=== PATIENT | female | born 1980 | race African-American/Black ===

== ENCOUNTER 2016-09-04 17:07 | Emergency (ER) | payer MEDICAID ==
[~2016-09-04] VITALS: Ht 165.1 cm; Wt 59.0 kg
[~2016-09-04 17:07] MED LIST: ALBU.5I NEB; CEPH-460 PO; FERR325T PO; FLUC150T PO
[2016-09-04 17:10] VITALS: BP 148/80; PULSE 82; RESP 20; TEMP 98.2; O2SAT 97
--- NOTE | 2016-09-04 17:37 | PD ---
HPI Chief Complaint: Cold / Flu Symptoms Time Seen by Provider: 17:34 Travel History International Travel<30 days: No Contact w/Intl Traveler<30days: No Traveled to known affect area: No History of Present Illness HPI Patient comes in complaining of cold-like symptoms that began yesterday. Patient states she took NyQuil last night. Patient denies doing anything else for this. Patient states that her child is at home with a cold, but she feels that she has the flu. Patient complaining of generalized body aches, headache, congestion, sore throat, and cough. Patient denies any known fevers but has had chills. Denies any nausea, vomiting, diarrhea, abdominal pain, chest pain, or shortness of breath. Patient denies anything making it better or worse. Patient reports she had similar last year when it got cold out that improved after using an inhaler that she no longer has. PFSH Past Medical History Hx Anticoagulant Therapy: No Asthma: Yes Cancer: No Cardiovascular Problems: No Chemotherapy: No Cerebrovascular Accident: No Diabetes: No Diminished Hearing: No Endocrine: No Glaucoma: No Genitourinary: No Hepatitis: No Hiatal Hernia: No Hypertension: No Immune Disorder: No Musculoskeletal: No Neurologic: No Psychiatric: No Reproductive: No Respiratory: No Migraines: Yes Thyroid Disease: No Influenza Vaccination: No ?: Not : 4 Para: 2 Miscarriage: 1 : 1 Ovarian Cysts: Yes Dilation and Curettage (D&C): Yes Tubal Ligation: Yes Past Surgical History AICD: No Eye Surgery: Yes (BILATERAL EYE SX A CHILD PER PT) Gynecologic Surgery: Yes (d and c) Hysterectomy: No Joint Replacement: No Oral Surgery: Yes (WISDOM TEETH) Pacemaker: No Other Surgery: Yes (CYSTS PRESENT ) Social History Alcohol Use: No Tobacco Use: No Substance Use: No Allergies-Medications (Allergen,Severity, Reaction): Coded Allergies: Penicillin (Verified Allergy, Intermediate, Hives, 09/04/16) Reported Meds & Prescriptions Reported Meds & Active Scripts Active Ventolin Hfa 18 GM Inh (Albuterol Sulfate) 90 Mcg/Act Aer 2 Puff INH Q4H PRN Review of Systems Except as stated in HPI: all other systems reviewed are Neg Physical Exam Narrative GENERAL: Well-developed, well nourished, in no acute distress, and non-ill appearing. SKIN: Warm and dry. HEAD: Atraumatic. Normocephalic. EYES: Pupils equal and round. EOMI. No scleral icterus. No injection or drainage. ENT: No nasal bleeding or discharge. Mucous membranes pink and moist. Tympanic membranes pearly donahue bilaterally. Posterior pharynx Nonerythematous without exudate. Uvula is midline. NECK: Trachea midline. No cervical lymphadenopathy. Supple. No nuclear rigidity. CARDIOVASCULAR: Regular rate and rhythm. No murmur appreciated. RESPIRATORY: No accessory muscle use. No respiratory distress. Clear to auscultation. Breath sounds equal bilaterally. Dry hacking cough noted on exam. GASTROINTESTINAL: Abdomen soft, non-tender, nondistended. Hepatic and splenic margins not palpable. Normal bowel sounds 4. No pulsatile mass. MUSCULOSKELETAL: No obvious deformities. No clubbing. No cyanosis. No edema. Full range of motion. NEUROLOGICAL: Awake and alert. No obvious cranial nerve deficits. Motor grossly within normal limits. Normal speech. PSYCHIATRIC: Appropriate mood and affect; insight and judgment normal. Data Data Last Documented VS Vital Signs Date Time Temp Pulse Resp B/P Pulse Ox O2 Delivery O2 Flow Rate FiO2 09/04/16 17:26 Room Air 09/04/16 17:10 98.2 82 20 148/80 97 Orders Group A Rapid Strep Screen (09/04/16 17:34) Influenzae A/B Antigen (09/04/16 17:34) Strep Culture (Group A) (09/04/16 17:40) MDM Medical Decision Making Medical Screen Exam Complete: Yes Emergency Medical Condition: Yes Differential Diagnosis Influenza, viral syndrome, strep pharyngitis, upper respiratory infection, other Narrative Course Patients symptom complex of cough and congestion is consistent with viral URI. The patient is non-ill appearing and is in no respiratory distress and comfortable. The patient moves air well and oxygen saturations are normal. There is no clinical evidence to suggest pneumonia at this time. Plan of care and management were discussed with the patient who agreed with plan. The patient was instructed to follow up with their physician and instructed to return if worsens, progressively worsening shortness of breath or difficulty breathing, persistent fever, chest pains or discomfort, inability to keep medication or fluids down with or without vomiting, or as needed. Patient in no obvious distress upon re-evaluation. All pertinent laboratory result(s) discussed with patient. Patient was asked if they wanted to speak to my attending, which the patient did not wish to do at this time. Any questions/ concerns in reference to patient diagnosis/condition discussed and clarified prior to patient's discharge. Reinforced sheer importance of close follow up with patient's primary physician or primary care clinic. Instructed patient to return to ED immediately, if symptoms return/worsen. Pt showed understanding of above instructions. Further instructions and recommendations were detailed in discharge paperwork. Pt ambulated without difficulty out of ED at discharge. Diagnosis Primary Impression: Upper respiratory infection Qualified Code: J06.9 - Upper respiratory tract infection, unspecified type Patient Instructions: General Instructions, Upper Respiratory Infection (ED) Additional Instructions: Follow-up with your primary care physician this week for reevaluation. Take all medication as prescribed. Use [id number] cold and flu medication for symptomatic relief. Follow instructions on the packaging. Drink plenty of non- caffeinated and nonalcoholic fluids. Return to the emergency department if symptoms get worse. Med/Other Pt SpecificInfo: Prescription(s) given Scripts Albuterol 18 GM Inh (Ventolin Hfa 18 GM Inh)90 Mcg/Act Aer2 Puff INH Q4H PRN ( COUGH) #1 INHALER Ref 0 Prov:Blanca Chavez MD 09/04/16 Disposition: 01 DISCHARGE HOME Condition: Stable Yoni Palmer Sep 04, 2016 17:37
[2016-09-04] MEDS ORDERED: VENTAER INH (18:26)
[2016-09-08] MEDS ORDERED: ZITHTAB PO (11:42)
[2016-09-08] MEDS ORDERED: [UNRECOGNIZED DRUG - OTHER] OROPHARYNG (11:42)
[2016-09-08] MEDS ORDERED: ALBUAER3 INH (11:42)
[2016-10-25] MEDS ORDERED: METR0.7528 VAGINAL (09:08)
[2016-11-15] MEDS ORDERED: METR500T10 PO (14:18)
[2016-11-15] MEDS ORDERED: CEPH500C PO (14:18)
[2016-11-15] MEDS ORDERED: MIREIUD I-UTERINE (14:22)
== END 2016-09-04 18:52 | disposition home or self-care (01) ==
LOC: NEPB 17:07
DX: J06.9 Acute upper respiratory infection, unspecified (principal)
CPT/HCPCS: 87081; 87804; 87880; 99283

== ENCOUNTER 2017-01-01 18:04 | Emergency (ER) | payer MEDICAID ==
[~2017-01-01] VITALS: Ht 165.1 cm; Wt 60.0 kg
[~2017-01-01 18:04] MED LIST changes: -ALBU.5I NEB; +ALBUAER3 INH; -CEPH-460 PO; +CEPH500C PO; -FERR325T PO; -FLUC150T PO; +METR500T10 PO; +MIREIUD I-UTERINE; +VENTAER INH; +[UNRECOGNIZED DRUG - OTHER] OROPHARYNG
[2017-01-01 18:05] VITALS: BP 128/74; PULSE 102; RESP 20; TEMP 101; O2SAT 98
[2017-01-01] MEDS ORDERED: ONDANSETRON HCL 4 MG/2 ML VIAL IV PUSH ONE (19:30)
[2017-01-01] MEDS ORDERED: IBUPROFEN 800 MG TAB PO ONE (19:30)
[2017-01-01] MEDS ORDERED: SODIUM CHLORIDE 0.9% FLUSH 10 ML FLUSH IVF PRN (19:30)
[2017-01-01] MEDS ORDERED: SODIUM CHLOR 0.9% 1000 ML INJ 1,000 ML IV ONE (19:30)
--- NOTE | 2017-01-01 19:55 | PD ---
HPI Chief Complaint: Cold / Flu Symptoms Time Seen by Provider: 19:46 Travel History International Travel<30 days: No Contact w/Intl Traveler<30days: No Traveled to known affect area: No History of Present Illness HPI Patient is a 36-year-old female presenting to emergency evaluation of bodyaches , headache, nausea, cough or chest congestion. Patient states her symptoms started yesterday, she reports vomiting 2-3 times today. Patient states that her children have been sick with the flu. She denies abdominal pain, chest pain , diarrhea. PFSH Past Medical History Hx Anticoagulant Therapy: No Asthma: Yes Cancer: No Cardiovascular Problems: No Chemotherapy: No Cerebrovascular Accident: No Diabetes: No Diminished Hearing: No Endocrine: No Glaucoma: No Genitourinary: No Hepatitis: No Hiatal Hernia: No Hypertension: No Immune Disorder: No Musculoskeletal: No Neurologic: No Psychiatric: No Reproductive: No Migraines: Yes Thyroid Disease: No ?: Not LMP: IUD : 4 Para: 2 Miscarriage: 1 : 1 Ovarian Cysts: Yes Dilation and Curettage (D&C): Yes Tubal Ligation: Yes Past Surgical History AICD: No Eye Surgery: Yes (BILATERAL EYE SX A CHILD PER PT) Gynecologic Surgery: Yes (tubal ligation, IUD) Hysterectomy: No Joint Replacement: No Oral Surgery: Yes (WISDOM TEETH) Pacemaker: No Social History Alcohol Use: No Tobacco Use: No Substance Use: No Allergies-Medications (Allergen,Severity, Reaction): Coded Allergies: Penicillin (Verified Allergy, Intermediate, Hives, 11/15/16) Reported Meds & Prescriptions Reported Meds & Active Scripts Active Ventolin Hfa 18 GM Inh (Albuterol Sulfate) 90 Mcg/Act Aer 2 Puff INH Q4H PRN Reported Mirena (Levonorgestrel (Iud)) 20 Mcg/24 Hr Iud 52 Mg I-UTERINE ONCE inserted by Dr Salvador 2014 [chlornexidine] OROPHARYNG NEEDED FOR THROAT Proair Hfa 8.5 GM Inh (Albuterol Sulfate) 90 Mcg/Act Aer 2 Puff INH Q4-6H PRN 108 mcg/actuation Review of Systems Except as stated in HPI: all other systems reviewed are Neg General / Constitutional: Positive: Fever, Chills HENT: Positive: Headaches, Congestion Cardiovascular: No: Chest Pain or Discomfort Respiratory: Positive: Cough, Pleuritic Pain Gastrointestinal: Positive: Nausea, Vomiting, No: Diarrhea, Abdominal Pain Genitourinary: No: Dysuria Musculoskeletal: Positive: Myalgias Physical Exam Narrative GENERAL: Well-developed, well-nourished, alert female. SKIN: Warm and dry. HEAD: Atraumatic. Normocephalic. EYES: Pupils equal and round. No scleral icterus. No injection or drainage. ENT: No nasal bleeding or discharge. Mucous membranes pink and moist. NECK: Trachea midline. No JVD. CARDIOVASCULAR: Regular rate and rhythm. RESPIRATORY: No accessory muscle use. Clear to auscultation. Breath sounds equal bilaterally. GASTROINTESTINAL: Abdomen soft, non-tender, nondistended. Hepatic and splenic margins not palpable. MUSCULOSKELETAL: Extremities without clubbing, cyanosis, or edema. No obvious deformities. NEUROLOGICAL: Awake and alert. No obvious cranial nerve deficits. Motor grossly within normal limits. Five out of 5 muscle strength in the arms and legs. Normal speech. PSYCHIATRIC: Appropriate mood and affect; insight and judgment normal. Data Data Last Documented VS Vital Signs Date Time Temp Pulse Resp B/P Pulse Ox O2 Delivery O2 Flow Rate FiO2 01/01/17 20:49 98.4 01/01/17 18:05 102 20 128/74 98 Room Air Orders Complete Blood Count With Diff (01/01/17 19:26) Basic Metabolic Panel (Bmp) (01/01/17 19:26) Influenzae A/B Antigen (01/01/17 19:26) Iv Access Insert/Monitor (01/01/17 19:26) Oximetry (01/01/17 19:26) Ibuprofen (Motrin) (01/01/17 19:30) Sodium Chloride 0.9% Flush (Ns Flush) (01/01/17 19:30) Sodium Chlor 0.9% 1000 Ml Inj (Ns 1000 M (01/01/17 19:30) Ondansetron Inj (Zofran Inj) (01/01/17 19:30) Labs Laboratory Tests Test 01/01/17 20:08 White Blood Count 7.1 TH/MM3 Red Blood Count 5.18 MIL/MM3 Hemoglobin 13.7 GM/DL Hematocrit 41.3 % Mean Corpuscular Volume 79.6 FL Mean Corpuscular Hemoglobin 26.4 PG Mean Corpuscular Hemoglobin 33.2 % Concent Red Cell Distribution Width 12.9 % Platelet Count 188 TH/MM3 Mean Platelet Volume 9.4 FL Neutrophils (%) (Auto) 79.8 % Lymphocytes (%) (Auto) 7.2 % Monocytes (%) (Auto) 9.2 % Eosinophils (%) (Auto) 3.3 % Basophils (%) (Auto) 0.5 % Neutrophils # (Auto) 5.7 TH/MM3 Lymphocytes # (Auto) 0.5 TH/MM3 Monocytes # (Auto) 0.7 TH/MM3 Eosinophils # (Auto) 0.2 TH/MM3 Basophils # (Auto) 0.0 TH/MM3 CBC Comment DIFF FINAL Differential Comment MDM Medical Decision Making Medical Screen Exam Complete: Yes Emergency Medical Condition: Yes Interpretation(s) Vital Signs Date Time Temp Pulse Resp B/P Pulse Ox O2 Delivery O2 Flow Rate FiO2 01/01/17 18:05 101.0 102 20 128/74 98 Room Air Differential Diagnosis Bronchitis versus pneumonia versus influenza versus other Narrative Course Patient is a 36-year-old female presented to the emergency department for evaluation of one day of body aches, headache, nausea and fevers and cough. Patient's children have the same illness and illness resolved on its own. Patient was mildly tachycardic with heart rate of 102 and a temp of 101 on arrival. Patient is given 800 mg of ibuprofen, temp was reassessed at 98.4. Patient was given IV fluids, heart rate is currently in the 80s. Influenza is negative, CBC is unremarkable, chemistry is unremarkable. Patient will be given prescriptions for ibuprofen and Phenergan. She was encouraged to maintain adequate hydration and continue symptomatic management. She was encouraged to obtain a thermometer to her temperature. Patient was encouraged to return to emergency department for any new or worsening symptoms. Patient verbalized understanding of instructions. Patient stable for discharge. Diagnosis Primary Impression: Viral syndrome Referrals: [facility] Primary Care Physician Patient Instructions: General Instructions, Viral Syndrome (ED) Additional Instructions: Maintain adequate fluid intake Continue symptom management Take medications as needed and as directed Return to emergency department for any new or worsening symptoms Med/Other Pt SpecificInfo: Prescription(s) given Scripts Promethazine (Phenergan)25 Mg Tab25 Mg PO Q6H PRN (Nausea/Vomiting) 3 Days Ref 0 Prov:Shazia Mckeon 01/01/17 Ibuprofen 800 Mg [id number] Mg PO Q8H PRN (Pain/Inflammation) 10 Days Ref 0 Prov:Shazia Mckeon 01/01/17 Disposition: 01 DISCHARGE HOME Condition: Stable Shazia Mckeon January 01, 2017 19:55
[2017-01-01 20:31] LABS: AUTOMATED NEUTROPHIL # 5.7 TH/MM3 (1.8-7.7); BASOPHIL % 0.5 % (0.0-2.0); EOSINOPHIL # 0.2 TH/MM3 (0-0.4); EOSINOPHIL % 3.3 % (0.0-4.0); HEMATOCRIT 41.3 % (35.0-46.0); HEMO FLAGS DIFF FINAL; LYMPH % 7.2 % (9.0-44.0); LYMPHOCYTE # 0.5 TH/MM3 (1.0-4.8); MEAN CELL VOLUME 79.6 FL (80.0-100.0); MEAN CORPUSCULAR HEMOGLOBIN 26.4 PG (27.0-34.0); MEAN CORPUSCULAR HGB CONC 33.2 % (32.0-36.0); MONO % 9.2 % (0.0-8.0); NEUT % 79.8 % (16.0-70.0); PLATELET COUNT 188 TH/MM3 (150-450); RED BLOOD COUNT 5.18 MIL/MM3 (4.00-5.30); RED CELL DISTRIBUTION WIDTH 12.9 % (11.6-17.2); WHITE BLOOD COUNT 7.1 TH/MM3 (4.0-11.0)
[2017-01-01 20:49] VITALS: TEMP 98.4
[2017-01-01 20:53] LABS: BICARBONATE 26.8 MEQ/L (21.0-32.0); POTASSIUM 3.6 MEQ/L (3.5-5.1)
[2017-01-01] MEDS ORDERED: IBUP800T23 PO (20:54)
[2017-01-01] MEDS ORDERED: PROM25TA5 PO (20:54)
[2017-01-01 21:10] VITALS: BP 124/72; PULSE 90; RESP 18; O2SAT 97
== END 2017-01-01 21:15 | disposition home or self-care (01) ==
LOC: NEPD 18:04
DX: B34.9 Viral infection, unspecified (principal)
CPT/HCPCS: 80048; 85025; 87804; 96361; 96374; 99284; J2405; J7030

== ENCOUNTER → 2017-07-12 | Day surgery (SDC) | payer MEDICAID ==
--- NOTE | 2017-07-10 13:19 | MH ---
cc: NICHO CERVANTES MD DATE OF ADMISSION: 07/12/2017 REASON FOR ADMISSION Loop electrical excision procedure. HISTORY OF PRESENT ILLNESS The patient is well-known to our practice and was recently seen in the office for evaluation of a high-grade squamous intraepithelial lesion. Colposcopic directed biopsies were taken which confirmed the existence of dysplastic lesion. We discussed different modes of therapy. She will proceed to having a loop electrical excision procedure. The risks of the procedure were discussed at length. ALLERGIES The patient describes allergies to PENICILLIN. FAMILY HISTORY Significant that her mother and father have a history of hypertension. PAST MEDICAL HISTORY Significant for - 1. History of anemia. 2. Ovarian cyst. 3. Dysmenorrhea. 4. Tonsillitis. PAST SURGICAL HISTORY The patient describes herself at with one miscarriage. AGE AT MENSTRUATION 17. ANIMAL RESCUER HISTORY The patient describes a long history of abnormal Pap smears starting in 2012 and then in 2013 colposcopic biopsy revealed SYLWIA-1. However, recently Pap smear was returned as high-grade squamous intraepithelial lesion. PAST SURGICAL HISTORY Surgical history is significant for - 1. Tubal ligation in 2014. 2. D&C in 2008. REVIEW OF SYSTEMS Essentially noncontributory. PHYSICAL EXAMINATION GENERAL: The patient is seen as well-developed, well-nourished, in no acute distress. VITAL SIGNS: Blood pressure was 110/80, pulse 70, respirations are 12. HEENT: Negative. CHEST: Clear to auscultation. CARDIOVASCULAR: Regular rate. ABDOMEN: Soft. Bowel sounds are positive. PELVIC EXAMINATION: External genitalia within normal limits. Uterus is normal in size. There is no adnexal mass palpable. EXTREMITIES: No cyanosis, clubbing or edema. NEUROPSYCHIATRIC: The patient is oriented x3 and showed no gross neurocranial deficit. REASON FOR ADMISSION High-grade squamous intraepithelial lesion of the cervix. PLAN The plan was for a loop electrical excision procedure. Nicho Cervantes MD JSG/SSB /11:48 AM /1:14 PM
[~2017-07-12] VITALS: Ht 165.1 cm; Wt 61.2 kg
[~2017-07-12] MED LIST changes: +*MEPERIDINE 25 MG INJ VIAL PERIprocedural Use ONLY ONE; +*diphenhydrAMINE HCL 50 MG/ML VIAL PERIprocedural Use ONLY ONE; +*morphine SULFATE 8 MG/ML PERIprocedure ONLY ONE; +ACETAMINOPHEN 1000 MG/100 ML 100 ML IV ONE; -ALBUAER3 INH; -CEPH500C PO; +CHLORHEXIDINE GLUCONATE 2 % 1 PACK (2 CLOTHS) TOPICAL PRN; +DEXAMETHASONE SOD PHOS 4 MG/ML VIAL IV ONE; +DEXAMETHASONE SOD PHOS 4 MG/ML VIAL ONE; +INSULIN HUMAN REGULAR 1,000 UNITS/10 ML VIAL SQ PRN; +LIDOCAINE HCL 1% PF 5 ML AMPULE OTHER ONE; +METOPROLOL TARTRATE 25 MG TAB PO PRN; -METR500T10 PO; +MIDAZOLAM HCL 2 MG/2 ML VIAL IV ONE; +ONDANSETRON HCL 4 MG/2 ML VIAL IV PUSH ONE; +POVIDONE IODINE 5% (ANTISEPSIS KIT) 4 APPLICATIONS EACH NARE PRN; +PROPOFOL 200 MG/20 ML AMP IV ONE; +SODIUM CHLORID 0.9% 500 ML IV PRN; -VENTAER INH; -[UNRECOGNIZED DRUG - OTHER] OROPHARYNG; +ceFAZolin 2 GM PREMIX 50 ML IV SCH; +ceFAZolin INJ 1,000 MG VIAL IV ONE; +hydrOXYzine PAMOATE 25 MG CAP PO ONE
[2017-07-12] MEDS: LACTATED RINGER'S 1000 ML IV PRN ×2 (06:42→08:20)
--- NOTE | 2017-07-12 09:07 | MP ---
cc: NICHO CERVANTES MD DATE OF SURGERY: 07/11/2017 PREOPERATIVE DIAGNOSIS High-grade squamous intraepithelial lesion of the cervix. POSTOPERATIVE DIAGNOSIS High-grade squamous intraepithelial lesion of the cervix. OPERATION Loop electrical excision procedure and removal of IUD. SURGEON Billy. ANESTHESIA General. ESTIMATED BLOOD LOSS Minimal. COMPLICATIONS None. 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 PROCEDURE The patient was prepped and draped in dorsal lithotomy position. A weighted speculum was placed in the posterior vaginal vault. The anterior lip of the cervix was grasped with a single-tooth tenaculum. The IUD was removed using sponge forceps and then a large size wire loop was used to excise the transformation zone. A smaller size wire loop was used to excise a small portion of the endocervical canal. Good hemostasis was noted. A ball electrode was used for further hemostasis. The tenaculum and speculum were removed. The patient was returned to the recovery room in stable condition. Nicho Cervantes MD JSG/BT /8:11 AM /9:03 AM
[2017-07-12 11:00] VITALS: BP 116/70; PULSE 72; RESP 16; TEMP 98.8; O2SAT 98
== END | disposition home or self-care (01) ==
LOC: HSDC 05:36
PROVIDERS: ATTEND Obstetrics & Gynecology
DX: N87.1 Moderate cervical dysplasia (principal); Z30.432 Encounter for removal of intrauterine contraceptive device; Z98.51 Tubal ligation status
CPT/HCPCS: 00940; 57522; 58301; 88300; 88305; 88307; J0690; J1200; J2175; J2250; J2270; J2405; J3010; J7120; Q0177; J0131; J1100

== ENCOUNTER 2017-09-23 16:44 | Emergency (ER) | payer MEDICAID ==
[~2017-09-23] VITALS: Ht 165.1 cm; Wt 60.0 kg
[~2017-09-23 16:44] MED LIST changes: -*MEPERIDINE 25 MG INJ VIAL PERIprocedural Use ONLY ONE; -*diphenhydrAMINE HCL 50 MG/ML VIAL PERIprocedural Use ONLY ONE; -*morphine SULFATE 8 MG/ML PERIprocedure ONLY ONE; +ACET-898; -ACETAMINOPHEN 1000 MG/100 ML 100 ML IV ONE; -CHLORHEXIDINE GLUCONATE 2 % 1 PACK (2 CLOTHS) TOPICAL PRN; -DEXAMETHASONE SOD PHOS 4 MG/ML VIAL IV ONE; -DEXAMETHASONE SOD PHOS 4 MG/ML VIAL ONE; -INSULIN HUMAN REGULAR 1,000 UNITS/10 ML VIAL SQ PRN; -LIDOCAINE HCL 1% PF 5 ML AMPULE OTHER ONE; +MEDR150I IM; -METOPROLOL TARTRATE 25 MG TAB PO PRN; -MIDAZOLAM HCL 2 MG/2 ML VIAL IV ONE; -MIREIUD I-UTERINE; -ONDANSETRON HCL 4 MG/2 ML VIAL IV PUSH ONE; -POVIDONE IODINE 5% (ANTISEPSIS KIT) 4 APPLICATIONS EACH NARE PRN; -PROPOFOL 200 MG/20 ML AMP IV ONE; -SODIUM CHLORID 0.9% 500 ML IV PRN; -ceFAZolin 2 GM PREMIX 50 ML IV SCH; -ceFAZolin INJ 1,000 MG VIAL IV ONE; -hydrOXYzine PAMOATE 25 MG CAP PO ONE
[2017-09-23 16:48] VITALS: BP 128/92; PULSE 94; RESP 16; TEMP 98.1; O2SAT 98
[2017-09-23] MEDS ORDERED: NAPROXEN 500 MG TAB PO ONE (18:15)
[2017-09-23] MEDS ORDERED: SULFAMETHOXAZOLE-TRIMETHOPRIM DS 800-160 MG TAB PO ONE (18:15)
[2017-09-23] MEDS ORDERED: CEPHALEXIN MONOHYDRATE 500 MG CAP PO ONE (18:15)
[2017-09-23] MEDS ORDERED: NAPR500 PO (18:16)
[2017-09-23] MEDS ORDERED: BACT800T5 PO (18:16)
[2017-09-23] MEDS ORDERED: CEPH-460 PO (18:16)
--- NOTE | 2017-09-23 18:16 | PD ---
HPI Chief Complaint: Skin Problem Time Seen by Provider: 18:04 Travel History International Travel<30 days: No Contact w/Intl Traveler<30days: No Traveled to known affect area: No History of Present Illness HPI 37-year-old female here for evaluation of left buttock boil. Patient reports that she first noticed the area of firmness and pain 2 days ago. She states it has been increasing in size. Pain is moderate to severe, constant, worse with palpation and sitting. She is unsure if there has been any drainage. No fevers or chills. No history of IVDU. PFSH Past Medical History Hx Anticoagulant Therapy: No Asthma: Yes Cancer: No Cardiovascular Problems: No Chemotherapy: No Cerebrovascular Accident: No Diabetes: No Diminished Hearing: No Endocrine: No Glaucoma: No Genitourinary: No Hepatitis: No Hiatal Hernia: No Hypertension: No Immune Disorder: No Musculoskeletal: No Neurologic: No Psychiatric: No Reproductive: Yes (ABNORMAL CELLS) Respiratory: Yes (ASTHMA) Migraines: Yes Thyroid Disease: No ?: Not : 4 Para: 2 Miscarriage: 1 : 1 Ovarian Cysts: Yes Dilation and Curettage (D&C): Yes Tubal Ligation: Yes Past Surgical History AICD: No Body Medical Devices: IUD Eye Surgery: Yes (BILATERAL EYE SX A CHILD PER PT) Gynecologic Surgery: Yes (tubal ligation, IUD) Hysterectomy: No Joint Replacement: No Oral Surgery: Yes (WISDOM TEETH) Pacemaker: No Social History Alcohol Use: No Tobacco Use: No Substance Use: No Allergies-Medications (Allergen,Severity, Reaction): Coded Allergies: penicillin G (Unverified Allergy, Intermediate, Hives, 09/23/17) Reported Meds & Prescriptions Reported Meds & Active Scripts Active Medroxyprogesterone Inj 150 Mg/Ml Inj 150 Mg IM Q90D Reported Acetaminophen Extra Strength (Acetaminophen) 500 Mg Tablet Review of Systems Except as stated in HPI: all other systems reviewed are Neg Physical Exam Narrative GENERAL: Well-developed, well-nourished, comfortable, no apparent distress. SKIN: Focused skin assessment warm/dry. Left superior buttock with area of erythema and induration with a central pustule, no spontaneous drainage. There is no fluctuance. This area was evaluated using a bedside ultrasound linear probe and shows cobblestoning, no drainable fluid collection. HEAD: Atraumatic. Normocephalic. CARDIOVASCULAR: Regular rate and rhythm. No murmur appreciated. RESPIRATORY: No accessory muscle use. Clear to auscultation. Breath sounds equal bilaterally. GASTROINTESTINAL: Abdomen soft, non-tender, nondistended. MUSCULOSKELETAL: No obvious deformities. No clubbing. No cyanosis. No edema. NEUROLOGICAL: Awake and alert. No obvious cranial nerve deficits. Motor grossly within normal limits. Normal speech. PSYCHIATRIC: Appropriate mood and affect; insight and judgment normal. Data Data Last Documented VS Vital Signs Date Time Temp Pulse Resp B/P (MAP) Pulse Ox O2 Delivery O2 Flow Rate FiO2 09/23/17 16:48 98.1 94 16 128/92 (104) 98 Orders Orders Sulfamet-Trimeth Ds 800-160 Mg (Bactrim (09/23/17 18:15) Cephalexin (Keflex) (09/23/17 18:15) Naproxen (Naprosyn) (09/23/17 18:15) MDM Medical Decision Making Medical Screen Exam Complete: Yes Emergency Medical Condition: Yes Differential Diagnosis Left buttock cellulitis, left buttock abscess Narrative Course Patient has an area on her left buttocks of induration, warmth, and evidence of possible drainage. There is no active drainage. There is no fluctuance. This area was evaluated using a linear ultrasound probe and shows cobblestoning which is consistent with cellulitis. There is no drainable fluid collection. Plan is to start the patient on oral antibiotics and she was advised to perform warm soaks/sitz baths. Patient advised to return to the emergency Department in 2 days for reevaluation. She was advised on when to return to the emergency Department sooner. She verbalizes understanding and agreement with plan. Procedures Procedure Narrative Bedside ultrasound: Using the linear ultrasound probe, a bedside ultrasound was performed to evaluate the area of induration on the patient's left superior buttock. This showed cobblestoning which is consistent with cellulitis. There is no drainable fluid collection. Diagnosis Primary Impression: Cellulitis of buttock, left Referrals: Primary Care Physician 2 days Additional Instructions: Return to the emergency Department in 2 days for reevaluation. Return to the emergency Department sooner for worsening symptoms or any other concerns. Take antibiotics as prescribed. Perform warm soaks/sitz baths as discussed. Do not squeeze this area. Scripts Naproxen (Naprosyn) 500 Mg Tab 500 MG PO BID for 10 Days, #20 TAB 0 Refills Prov: Gilson Liu MD 09/23/17 Cephalexin (Keflex) 500 Mg Cap 500 MG PO Q8H for Infection for 10 Days, #30 CAP 0 Refills Prov: Gilson Liu MD 09/23/17 Sulfamethoxazole-Trimethoprim (Bactrim DS) 800-160 Mg Tab 1 TAB PO BID for Infection, #20 TAB 0 Refills Prov: Gilson Liu MD 09/23/17 Disposition: 01 DISCHARGE HOME Condition: Stable Gilson Liu MD Sep 23, 2017 18:16
== END 2017-09-23 18:40 | disposition home or self-care (01) ==
LOC: NEPD 16:44
DX: L03.317 Cellulitis of buttock (principal)
CPT/HCPCS: 99284